=== PATIENT | male | born 1970 | race Two or more races ===

== ENCOUNTER 2019-08-15 09:40 | Emergency (ER) | payer BC, MEDICAID ==
[~2019-08-15] VITALS: Ht 162.6 cm; Wt 68.0 kg
[2019-08-15 09:55] VITALS: BP 141/99
[2019-08-15] MEDS ORDERED: IBUPROFEN 400MG TABLET PO ONE (10:45)
[2019-08-15] MEDS ORDERED: TETANUS, DIPHTHERIA, PERTUSSIS VAC/PF 0.5ML (>7YR OLD) IM ONE (10:45)
[2019-08-15] MEDS ORDERED: BACITRACIN ZINC OINT UDPKT TOP ONE (10:45)
== END 2019-08-15 10:58 | disposition home or self-care (01) ==
LOC: ER 09:40
DX: S91.052A Open bite, left ankle, initial encounter (principal); W54.0XXA Bitten by dog, initial encounter; Y93.89 Activity, other specified; Y92.018 Other place in single-family (private) house as the place of occurrence of the external cause
CPT/HCPCS: 90471; 90715; 99283